=== PATIENT | male | born 1960 | race American Indian/Alaskan Native ===

== ENCOUNTER 2019-03-31 08:06 | Outpatient (CLI) | payer OTHER ==
[2019-03-31] MEDS ORDERED: XYLOCAINE TOPICAL 4% TP ONE (08:09)
== END 2019-03-31 08:07 | disposition home or self-care (01) ==
LOC: WOUND 08:06
PROVIDERS: ATTEND Surgery
DX: S61.305A Unspecified open wound of left ring finger with damage to nail, initial encounter (principal); E10.9 Type 1 diabetes mellitus without complications; I10 Essential (primary) hypertension; E78.5 Hyperlipidemia, unspecified; W31.89XA Contact with other specified machinery, initial encounter; Y93.89 Activity, other specified; Y92.89 Other specified places as the place of occurrence of the external cause; Y99.8 Other external cause status
CPT/HCPCS: 11043; G0463; 99204; 99214

== ENCOUNTER 2019-04-07 08:56 | Outpatient (CLI) | payer OTHER ==
[2019-04-07] MEDS ORDERED: XYLOCAINE TOPICAL 4% TP ONE (09:30)
== END 2019-04-07 08:57 | disposition home or self-care (01) ==
LOC: WOUND 08:56
PROVIDERS: ATTEND Surgery
DX: S61.305D Unspecified open wound of left ring finger with damage to nail, subsequent encounter (principal); E10.9 Type 1 diabetes mellitus without complications; I10 Essential (primary) hypertension; E78.5 Hyperlipidemia, unspecified; W31.89XD Contact with other specified machinery, subsequent encounter

== ENCOUNTER 2019-04-14 09:03 | Outpatient (CLI) | payer OTHER ==
[2019-04-14] MEDS ORDERED: XYLOCAINE TOPICAL 4% TP ONE (09:30)
== END 2019-04-14 09:04 | disposition home or self-care (01) ==
LOC: WOUND 09:03
PROVIDERS: ATTEND Surgery
DX: S61.305D Unspecified open wound of left ring finger with damage to nail, subsequent encounter (principal); E10.9 Type 1 diabetes mellitus without complications; I10 Essential (primary) hypertension; E78.5 Hyperlipidemia, unspecified; W31.89XD Contact with other specified machinery, subsequent encounter

== ENCOUNTER 2019-04-21 08:59 | Outpatient (CLI) | payer OTHER | END 2019-04-21 09:00 | disposition home or self-care (01) | LOC: WOUND 08:59 | PROVIDERS: ATTEND Surgery | DX: S61.305D Unspecified open wound of left ring finger with damage to nail, subsequent encounter (principal); E10.9 Type 1 diabetes mellitus without complications; L84 Corns and callosities; I10 Essential (primary) hypertension; E78.5 Hyperlipidemia, unspecified; W31.89XD Contact with other specified machinery, subsequent encounter | CPT/HCPCS: 99212; G0463 ==

== ENCOUNTER 2019-04-27 11:06 | Outpatient (CLI) | payer OTHER ==
[2019-04-27] MEDS ORDERED: XYLOCAINE TOPICAL 4% TP ONE (11:40)
[2019-04-27] MEDS ORDERED: SILVER NITRATE TP ONE (12:41)
== END 2019-04-27 11:07 | disposition home or self-care (01) ==
LOC: WOUND 11:06
PROVIDERS: ATTEND Surgery
DX: S61.305D Unspecified open wound of left ring finger with damage to nail, subsequent encounter (principal); E10.9 Type 1 diabetes mellitus without complications; L84 Corns and callosities; I10 Essential (primary) hypertension; E78.5 Hyperlipidemia, unspecified; W31.89XD Contact with other specified machinery, subsequent encounter